=== PATIENT | female | born 1990 | race Caucasian/White ===

== ENCOUNTER 2018-12-21 02:33 | Outpatient (CLI) ==
[2018-12-21 03:07] VITALS: BP 123/72; PULSE 88; RESP 16; TEMP 98.4
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
== END 2018-12-21 03:27 | disposition home or self-care (01) ==
LOC: FBPOP 02:33
PROVIDERS: ATTEND Obstetrics & Gynecology
DX: O26.93 Pregnancy related conditions, unspecified, third trimester (principal); Z3A.30 30 weeks gestation of pregnancy
CPT/HCPCS: 59025; 99213

== ENCOUNTER 2019-02-08 09:30 | Outpatient (CLI) | payer OTHER ==
[2019-02-08 10:40] VITALS: BP 122/72; PULSE 105; RESP 14; TEMP 98.1
--- NOTE | 2019-02-08 10:56 | P.MSEPDOC ---
Presenting Problems - Arrival Data Date of Arrival on Unit: 02/08/19 Time of Arrival on Unit: 09:30 Mode of Transport: Ambulatory Vital Signs - Temperature Temperature: 98.1 F - Pulse Right Brachial Pulse Rate: 105 Pulse Assessment Method: Automatic Cuff - Respirations Respiratory Rate: 14 Oxygen Delivery Method: Room Air - Blood Pressure Right Arm Blood Pressure: 122/72 Blood Pressure Mean: 88 Blood Pressure Source: Automatic Cuff Medical Screen Scoring (Post) - Cervical Exam Dilation: 0 cm = 0 Membranes: Intact - Uterine Contractions Frequency: N/A Duration: N/A Intensity: N/A - Maternal Vital Signs Maternal Temperature: N/A Maternal Blood Pressure: N/A Signs of Preeclampsia: N/A Maternal Respirations: N/A - Pain Assessment Pain Scale Used: Numeric (1 - 10) Pain Intensity: 6 Pain Description: Dull Pain Frequency: Occasional Pain Duration: 1 Pain Duration Units: Days Pain Behavior: None Exhibited Pain Aggravating Factors: Coughing - Maternal Trauma Maternal Trauma: N/A - Assessment - Baby A Heart Rate: 145 Heart Rate - NICHD Category: Category I (Normal) = 0 NST: Reactive Position: N/A Station: +1 to = 1 - Total Score Total Score - Baby A: 1 Total Score - Baby B: 0 Total Score - Baby C: 0 - Post Treatment Level of Risk Post Treatment Level of Risk - Baby A: Low (0-5) Post Treatment Level of Risk - Baby B: Low (0-5) Post Treatment Level of Risk - Baby C: Low (0-5) Physician Notification (Post) - Physician Notified Physician Notified Date: 02/08/19 Physician Notified Time: 10:02 Physician/Practitioner Notified:: mame Spoke With: mame New Order Received: Yes - Notification Comment Comment: reported pt visit with c/o coughing, congestion and fever, vomiting 2 days ago, reported reactive nst, rare contractions, temp 98.1, tylenol use/ dr will call in [facility] for pt. pt may be discharged. Disposition - Disposition OB Disposition: Discharge to home Discharge Date: 02/08/19 Discharge Time: 10:10 I agree with the RN Medical Screening Exam: Yes Risk & Benefit of care provided described in d/c instruction: Yes Diagnosis: ACUTE UPPER RESPIRATORY INFECTION, UNSPECIFIED
== END 2019-02-08 10:17 | disposition home or self-care (01) ==
LOC: FBPOP 09:30
PROVIDERS: ATTEND Obstetrics & Gynecology
DX: O99.519 Diseases of the respiratory system complicating pregnancy, unspecified trimester (principal); J06.9 Acute upper respiratory infection, unspecified; Z3A.00 Weeks of gestation of pregnancy not specified
CPT/HCPCS: 59025; G0463; 99213

== ENCOUNTER 2019-02-23 15:36 | Emergency (ER) | payer OTHER ==
[2019-02-23 15:41] VITALS: BP 142/87; PULSE 110; RESP 20; TEMP 98.1
--- NOTE | 2019-02-23 15:53 | ED ---
ENT HPI - General Chief complaint: ENT Stated complaint: Ear Pain Time Seen by Provider: 02/23/19 15:42 Source: patient, RN notes reviewed Mode of arrival: ambulatory Limitations: no limitations - History of Present Illness Initial comments: 28-year-old female presented emergency apartment for ear pain, sinus congestion. Patient states she's been sick over the last few weeks. Patient was treated for sinusitis with a Z-Eris patient states that did not help. She states it has worsened now she has uncontrolled ear pain. She has a cough is nonproductive. Patient reports fevers and chills. Patient states that she is 39 weeks scheduled for induction and 6 days. Patient has appointment to chest pain or shortness of breath - Related Data Home Medications Medication Instructions Recorded Confirmed Pnv,Calcium 72/Iron/Folic Acid 1 tab PO DAILY 12/21/18 12/21/18 [ Plus Tablet] Previous Rx's Medication Instructions Recorded Amoxicillin/Potassium Clav 1 tab PO Q12HR #20 tab 02/23/19 [Augmentin 875-125 Tablet] Allergies Allergy/AdvReac Type Severity Reaction Status Date / Time No Known Allergies Allergy Verified 02/23/19 15:41 Review of Systems ROS Statement: Those systems with pertinent positive or pertinent negative responses have been documented in the HPI. ROS Other: All systems not noted in ROS Statement are negative. Past Medical History Past Medical History: No Reported History History of Any Multi-Drug Resistant Organisms: None Reported Past Surgical History: Appendectomy Past Psychological History: No Psychological Hx Reported Smoking Status: Never smoker Past Alcohol Use History: None Reported Past Drug Use History: None Reported General Exam Limitations: no limitations General appearance: alert, in no apparent distress Head exam: Present: atraumatic, normocephalic, normal inspection Eye exam: Present: normal appearance, PERRL, EOMI. Absent: scleral icterus, conjunctival injection, periorbital swelling ENT exam: Present: mucous membranes moist, normal external ear exam. Absent: normal oropharynx (Post nasal drainage), TM's normal bilaterally (Minimal erythema though most of the right TM is occluded by cerumen) Neck exam: Present: normal inspection, full ROM. Absent: tenderness, meningismus, lymphadenopathy Respiratory exam: Present: normal lung sounds bilaterally. Absent: respiratory distress, wheezes, rales, rhonchi, stridor Cardiovascular Exam: Present: regular rate, normal rhythm, normal heart sounds. Absent: systolic murmur, diastolic murmur, rubs, gallop, clicks Course Vital Signs 02/23/19 15:37 Temperature 98.1 F Pulse Rate 110 H Respiratory 20 Rate Blood Pressure 142/87 O2 Sat by Pulse 99 Oximetry Medical Decision Making - Medical Decision Making Patient we treated for acute sinusitis, right otitis media patient was placed on Augmentin. Patient will follow-up were PCP and Monday return for any worsening symptoms. Disposition Clinical Impression: Acute sinusitis, Otalgia Disposition: HOME SELF-CARE Condition: Stable Instructions (If sedation given, give patient instructions): Earache (ED) Additional Instructions: Please return to the Emergency Department if symptoms worsen or any other concerns. Prescriptions: Amoxicillin/Potassium Clav [Augmentin 875-125 Tablet] 1 tab PO Q12HR #20 tab Is patient prescribed a controlled substance at d/c from ED?: No Referrals: None,Stated [Primary Care Provider] - 1-2 days Time of Disposition: 15:53
== END 2019-02-23 16:01 | disposition home or self-care (01) ==
LOC: EC 15:36
DX: O99.513 Diseases of the respiratory system complicating pregnancy, third trimester (principal); J01.90 Acute sinusitis, unspecified; O99.89 Other specified diseases and conditions complicating pregnancy, childbirth and the puerperium; H66.91 Otitis media, unspecified, right ear; H61.21 Impacted cerumen, right ear; Z3A.39 39 weeks gestation of pregnancy
CPT/HCPCS: 99282

== ENCOUNTER 2019-02-23 20:11 | Emergency (ER) | payer OTHER ==
[2019-02-23] MEDS ORDERED: SODIUM CHLORIDE 0.9% 1,000 ML IV STA ×2 (20:34)
[2019-02-23] MEDS ORDERED: SODIUM CHLORIDE 0.9% 500 ML 500 ML IV STA (20:34)
[2019-02-23] MEDS ORDERED: diphenhydrAMINE 50 MG/ML 1 ML VIAL IVP STA (20:35)
--- NOTE | 2019-02-23 21:10 | ED ---
Fever HPI - General Chief Complaint: Fever Stated Complaint: Fever Time Seen by Provider: 02/23/19 20:21 Source: patient, RN notes reviewed, old records reviewed Limitations: no limitations - History of Present Illness Initial Comments: This is a 28-year-old female the ER presents today for evaluation regards to fever. Patient's had persistent fever for a few days now this is her third fever and last month. Patient is 39 weeks scheduled for induction 6 days. This is her fifth for as well as gone to term. Patient has multiple concerns now including concern for child. Also having significant right ear pain significant left her. Sinus tenderness and pain and a sore throat. Patient has bilateral lymphadenopathy. Patient has no chest pain no abdominal pain no dysuria no nausea vomiting or diarrhea. Eating appropriately. She does admit to some cough she's had a cough persistent for about the past month a Z-Eris recently for upper respiratory infection MD Complaint: fever, other (Cough and ear pain bilaterally) -: week(s) Temperature Source: subjective, oral Context: sick contacts Associated Symptoms: chills, cough, shortness of breath, night sweats Treatments Prior to Arrival: none - Related Data Home Medications Medication Instructions Recorded Confirmed Pnv,Calcium 72/Iron/Folic Acid 1 tab PO HS 12/21/18 02/23/19 [ Plus Tablet] Acetaminophen Tab [Tylenol Tab] 500 mg PO Q4H PRN 02/23/19 02/23/19 Ferrous Sulfate [Slow Release Iron] 140 mg PO HS 02/23/19 02/23/19 Previous Rx's Medication Instructions Recorded Amoxicillin/Potassium Clav 1 tab PO Q12HR #20 tab 02/23/19 [Augmentin 875-125 Tablet] Allergies Allergy/AdvReac Type Severity Reaction Status Date / Time No Known Allergies Allergy Verified 02/23/19 20:38 Review of Systems ROS Statement: Those systems with pertinent positive or pertinent negative responses have been documented in the HPI. ROS Other: All systems not noted in ROS Statement are negative. Past Medical History Past Medical History: No Reported History History of Any Multi-Drug Resistant Organisms: None Reported Past Surgical History: Appendectomy Past Psychological History: No Psychological Hx Reported Smoking Status: Never smoker Past Alcohol Use History: None Reported Past Drug Use History: None Reported General Exam Limitations: no limitations General appearance: alert, in no apparent distress Head exam: Present: atraumatic, normocephalic, normal inspection Eye exam: Present: normal appearance, PERRL, EOMI. Absent: scleral icterus, conjunctival injection, periorbital swelling ENT exam: Present: normal exam, mucous membranes moist Neck exam: Present: normal inspection. Absent: tenderness, meningismus, lymphadenopathy Respiratory exam: Present: normal lung sounds bilaterally. Absent: respiratory distress, wheezes, rales, rhonchi, stridor Cardiovascular Exam: Present: normal rhythm, tachycardia, normal heart sounds. Absent: systolic murmur, diastolic murmur, rubs, gallop, clicks GI/Abdominal exam: Present: soft, normal bowel sounds. Absent: distended, tenderness, guarding, rebound, rigid Extremities exam: Present: normal inspection, full ROM, normal capillary refill. Absent: tenderness, pedal edema, joint swelling, calf tenderness Back exam: Present: normal inspection Neurological exam: Present: alert, oriented X3, CN II-XII intact Psychiatric exam: Present: normal affect, normal mood Skin exam: Present: warm, dry, intact, normal color. Absent: rash Course Vital Signs 02/23/19 20:12 Temperature 100.7 F H Pulse Rate 117 H Respiratory 20 Rate Blood Pressure 149/92 O2 Sat by Pulse 97 Oximetry - Reevaluation(s) Reevaluation #1: 02/23/19 21:09 Medical record is reviewed 02/23/19 21:10 ER visit from earlier today has been looked at Reevaluation #2: 02/23/19 22:57 had heart tones done here in the ER 1 4150 Reevaluation #3: 02/23/19 22:57 Significantly improved with hydration will continue take Tylenol for fever Medical Decision Making - Medical Decision Making This is a female the ER for evaluation of fever febrile illness for upper respir atory for infection. At this point patient can be discharged home - Lab Data Result diagrams: 02/23/19 20:50 02/23/19 20:50 Lab Results 02/23/19 02/23/19 02/23/19 Range/Units 20:50 20:50 20:50 WBC 10.7 H (3.8-10.6) k/uL RBC 3.62 L (3.80-5.40) m/uL Hgb 10.2 L (11.4-16.0) gm/dL Hct 30.6 L (34.0-46.0) % MCV 84.7 (80.0-100.0) fL MCH 28.2 (25.0-35.0) pg MCHC 33.3 (31.0-37.0) g/dL RDW 14.2 (11.5-15.5) % Plt Count 224 (150-450) k/uL Neutrophils % 80 % Lymphocytes % 10 % Monocytes % 7 % Eosinophils % 0 % Basophils % 1 % Neutrophils # 8.6 H (1.3-7.7) k/uL Lymphocytes # 1.0 (1.0-4.8) k/uL Monocytes # 0.7 (0-1.0) k/uL Eosinophils # 0.0 (0-0.7) k/uL Basophils # 0.1 (0-0.2) k/uL Sodium 134 L (137-145) mmol/L Potassium 3.7 (3.5-5.1) mmol/L Chloride 106 (98-107) mmol/L Carbon Dioxide 19 L (22-30) mmol/L Anion Gap 9 mmol/L BUN 6 L (7-17) mg/dL Creatinine 0.53 (0.52-1.04) mg/dL Est GFR (CKD-EPI)AfAm >90 (>60 ml/min/1.73 sqM) Est GFR (CKD-EPI)NonAf >90 (>60 ml/min/1.73 sqM) Glucose 73 L (74-99) mg/dL Plasma Lactic Acid Lopez 0.9 (0.7-2.0) mmol/L Calcium 9.0 (8.4-10.2) mg/dL Phosphorus 3.2 (2.5-4.5) mg/dL Magnesium 1.6 (1.6-2.3) mg/dL Total Bilirubin 0.3 (0.2-1.3) mg/dL AST 20 (14-36) U/L ALT 18 (9-52) U/L Alkaline Phosphatase 187 H (38-126) U/L Total Protein 6.4 (6.3-8.2) g/dL Albumin 3.4 L (3.5-5.0) g/dL Urine Color Urine Appearance (Clear) Urine pH (5.0-8.0) Ur Specific Ovid (1.001-1.035) Urine Protein (Negative) Urine Glucose (UA) (Negative) Urine Ketones (Negative) Urine Blood (Negative) Urine Nitrite (Negative) Urine Bilirubin (Negative) Urine Urobilinogen (<2.0) mg/dL Ur Leukocyte Esterase (Negative) Urine RBC (0-5) /hpf Urine WBC (0-5) /hpf Ur Squamous Epith Cells (0-4) /hpf Urine Bacteria (None) /hpf Urine Mucus (None) /hpf Influenza Type A RNA (Not Detectd) Influenza Type B (PCR) (Not Detectd) Group A Strep Rapid (Negative) 02/23/19 02/23/19 02/23/19 Range/Units 20:50 20:50 21:31 WBC (3.8-10.6) k/uL RBC (3.80-5.40) m/uL Hgb (11.4-16.0) gm/dL Hct (34.0-46.0) % MCV (80.0-100.0) fL MCH (25.0-35.0) pg MCHC (31.0-37.0) g/dL RDW (11.5-15.5) % Plt Count (150-450) k/uL Neutrophils % % Lymphocytes % % Monocytes % % Eosinophils % % Basophils % % Neutrophils # (1.3-7.7) k/uL Lymphocytes # (1.0-4.8) k/uL Monocytes # (0-1.0) k/uL Eosinophils # (0-0.7) k/uL Basophils # (0-0.2) k/uL Sodium (137-145) mmol/L Potassium (3.5-5.1) mmol/L Chloride (98-107) mmol/L Carbon Dioxide (22-30) mmol/L Anion Gap mmol/L BUN (7-17) mg/dL Creatinine (0.52-1.04) mg/dL Est GFR (CKD-EPI)AfAm (>60 ml/min/1.73 sqM) Est GFR (CKD-EPI)NonAf (>60 ml/min/1.73 sqM) Glucose (74-99) mg/dL Plasma Lactic Acid Lopez (0.7-2.0) mmol/L Calcium (8.4-10.2) mg/dL Phosphorus (2.5-4.5) mg/dL Magnesium (1.6-2.3) mg/dL Total Bilirubin (0.2-1.3) mg/dL AST (14-36) U/L ALT (9-52) U/L Alkaline Phosphatase (38-126) U/L Total Protein (6.3-8.2) g/dL Albumin (3.5-5.0) g/dL Urine Color Yellow Urine Appearance Clear (Clear) Urine pH 7.5 (5.0-8.0) Ur Specific Ovid 1.012 (1.001-1.035) Urine Protein Trace H (Negative) Urine Glucose (UA) Negative (Negative) Urine Ketones 1+ H (Negative) Urine Blood Negative (Negative) Urine Nitrite Negative (Negative) Urine Bilirubin Negative (Negative) Urine Urobilinogen <2.0 (<2.0) mg/dL Ur Leukocyte Esterase Trace H (Negative) Urine RBC <1 (0-5) /hpf Urine WBC 4 (0-5) /hpf Ur Squamous Epith Cells 3 (0-4) /hpf Urine Bacteria Rare H (None) /hpf Urine Mucus Rare H (None) /hpf Influenza Type A RNA Not Detected (Not Detectd) Influenza Type B (PCR) Not Detected (Not Detectd) Group A Strep Rapid Negative (Negative) Disposition Clinical Impression: Otalgia, Acute sinusitis, Impacted cerumen of right ear Disposition: HOME SELF-CARE Condition: Good Instructions (If sedation given, give patient instructions): Fever in Adults (ED) Is patient prescribed a controlled substance at d/c from ED?: No Referrals: None,Stated [Primary Care Provider] - 1-2 days
[2019-02-23 21:13] LABS: Basophils # (A) 0.1 k/uL (0-0.2); Basophils % (A) 1 %; Eosinophils % (A) 0 %; HCT 30.6 % (34.0-46.0); HGB 10.2 gm/dL (11.4-16.0); Lymphocytes % (A) 10 %; MCH 28.2 pg (25.0-35.0); MCHC 33.3 g/dL (31.0-37.0); MCV 84.7 fL (80.0-100.0); Mean Platelet Volume 6.9; Monocytes # (A) 0.7 k/uL (0-1.0); Monocytes % (A) 7 %; Neutrophils # (A) 8.6 k/uL (1.3-7.7); Neutrophils % (A) 80 %; Platelet Count 224 k/uL (150-450); RBC 3.62 m/uL (3.80-5.40); RDW 14.2 % (11.5-15.5); WBC 10.7 k/uL (3.8-10.6)
[2019-02-23 21:27] LABS: ALT 18 U/L (9-52); AST 20 U/L (14-36); African American GFR (CKD) >90 (>60 ml/min/1.73 sqM); Albumin 3.4 g/dL (3.5-5.0); Alkaline Phosphatase 187 U/L (38-126); Anion Gap 9 mmol/L; Blood Urea Nitrogen 6 mg/dL (7-17); Carbon Dioxide 19 mmol/L (22-30); Chloride 106 mmol/L (98-107); Glucose 73 mg/dL (74-99); Magnesium 1.6 mg/dL (1.6-2.3); Phosphorus 3.2 mg/dL (2.5-4.5); Potassium 3.7 mmol/L (3.5-5.1); Sodium 134 mmol/L (137-145); Total Bilirubin 0.3 mg/dL (0.2-1.3); Total Protein 6.4 g/dL (6.3-8.2)
[2019-02-23] MEDS ORDERED: HYDROGEN PEROXIDE BOTTLE TOPICAL STA (21:41)
[2019-02-23 22:23] LABS: Appearance,Urine Clear (Clear); Bacteria,Urine Rare /hpf; Bilirubin,Urine Negative (Negative); Blood,Urine Negative (Negative); Color,Urine Yellow; Glucose,Urine (UA) Negative (Negative); Ketones,Urine 1+ (Negative); Leukocyte Esterase,Urine Trace (Negative); Mucus,Urine Rare /hpf; Nitrite,Urine Negative (Negative); PH, Urine 7.5 (5.0-8.0); Protein,Urine Trace (Negative); RBC,Urine <1 /hpf (0-5); Specific Gravity,Urine 1.012 (1.001-1.035); Squamous Epithelial Cell,Urine 3 /hpf (0-4); Urobilinogen,Urine <2.0 mg/dL (<2.0)
[2019-02-23 23:06] VITALS: BP 116/60; PULSE 116; RESP 16; TEMP 99.6
== END 2019-02-23 23:26 | disposition home or self-care (01) ==
LOC: EC 20:11
DX: O99.513 Diseases of the respiratory system complicating pregnancy, third trimester (principal); J01.90 Acute sinusitis, unspecified; O99.89 Other specified diseases and conditions complicating pregnancy, childbirth and the puerperium; H61.21 Impacted cerumen, right ear; R00.0 Tachycardia, unspecified; J02.9 Acute pharyngitis, unspecified; Z3A.39 39 weeks gestation of pregnancy; Z53.8 Procedure and treatment not carried out for other reasons
CPT/HCPCS: 99284; 96374; 96361; 36415; 80053; 83605; 83735; 84100; 85025; 81001; 87040; 87081; 87430; 87502; J1200

== ENCOUNTER 2019-03-01 06:00 | Inpatient (IN) | payer OTHER ==
--- NOTE | 2019-02-28 20:30 | P.HPOB ---
History of Present Illness H&P Date: 02/28/19 Chief Complaint: Induction of labor This is a 28-year-old female 5 para 0 with an estimated date of confinement of 03/04/2019, estimated gestational age of 39-4/7 weeks, who presents to labor and delivery for induction of labor. She admits to good movement. She has been feeling frequent contractions and pressure. Her course has been essentially uncomplicated. labs: Blood type O+ Antibody screen-negative Rubella-immune RPR-negative Hepatitis B surface antigen-negative HIV-negative Hemoglobin-12.3 /Chlamydia-negative Chromosome testing-negative Obstetrical ultrasound-normal anatomy One hour Glucola-104 Group B streptococcus-positive Obstetrical history: . History of 4 miscarriages. Gynecologic history: No history of sexual transmitted diseases Social history: She is single. 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 Review of Systems Constitutional: Denies chills, Denies fever Eyes: denies blurred vision, denies pain Ears, nose, mouth and throat: Denies headache, Denies sore throat Cardiovascular: Denies chest pain, Denies shortness of breath Respiratory: Denies cough Gastrointestinal: Reports abdominal pain (Irregular contractions) Genitourinary: Reports pelvic pain, Reports Musculoskeletal: Reports low back pain Integumentary: Denies pruritus, Denies rash Neurological: Denies numbness, Denies weakness Past Medical History Past Medical History: No Reported History History of Any Multi-Drug Resistant Organisms: None Reported Past Surgical History: Appendectomy Additional Past Surgical History / Comment(s): Dilation and curettage; wisdom teeth Past Psychological History: No Psychological Hx Reported Smoking Status: Never smoker Past Alcohol Use History: None Reported Past Drug Use History: None Reported Medications and Allergies Home Medications Medication Instructions Recorded Confirmed Type Pnv,Calcium 72/Iron/Folic Acid 1 tab PO HS 12/21/18 02/23/19 History [ Plus Tablet] Acetaminophen Tab [Tylenol Tab] 500 mg PO Q4H PRN 02/23/19 02/23/19 History Amoxicillin/Potassium Clav 1 tab PO Q12HR #20 tab 02/23/19 02/23/19 Rx [Augmentin 875-125 Tablet] Ferrous Sulfate [Slow Release Iron] 140 mg PO HS 02/23/19 02/23/19 History Allergies Allergy/AdvReac Type Severity Reaction Status Date / Time No Known Allergies Allergy Verified 02/23/19 20:38 Exam Osteopathic Statement: *. No significant issues noted on an osteopathic structural exam other than those noted in the History and Physical/Consult. HEENT: Within normal limits Heart: Regular rate and rhythm Lungs: Clear to auscultation bilaterally Abdomen: Cervix: 2 cm/70%/+1 station heart tones: 140s by Doppler Extremities: Negative Homans Assessment and Plan (1) 39 weeks gestation of Status: Acute Code(s): Z3A.39 - 39 WEEKS GESTATION OF SNOMED Code(s): 23589138 (2) Group B Streptococcus carrier, +RV culture, currently Status: Acute Code(s): O99.820 - STREPTOCOCCUS B CARRIER STATE COMPLICATING SNOMED Code(s): 6324207199730 Plan: Admission for oxytocin induction of labor. Antibiotic prophylaxis for group B streptococcus. Expectant management. Epidural anesthesia if desired.
[2019-03-01] MEDS ORDERED: METHYLERGONOVINE 0.2 MG/ML 1 ML AMP IM PRN (06:22)
[2019-03-01] MEDS ORDERED: OXYTOCIN 10 UNIT/ML 1 ML VIAL IM PRN (06:22)
[2019-03-01] MEDS ORDERED: LIDOCAINE 0.5% (PF) 5 MG/ML (50 ML SDV) SQ PRN (06:22)
[2019-03-01] MEDS ORDERED: TERBUTALINE 1 MG/ML VIAL SQ PRN (06:22)
[2019-03-01] MEDS ORDERED: CARBOPROST TROMETHAMINE 250 MCG/ML 1 ML AMP IM PRN (06:22)
[2019-03-01] MEDS ORDERED: OXYTOCIN 30 UNITS/500 ML NS 30 UNIT in SALINE 1 500ML.BAG IV SCH (06:22)
[2019-03-01] MEDS ORDERED: AMPICILLIN 2,000 MG in SODIUM CHLORIDE 0.9% 100 ML IVPB STA (06:22)
[2019-03-01] MEDS ORDERED: LIDOCAINE 1% 20 ML VIAL (10MG/ML) FOR IV START INTRADERMA PRN (06:22)
[2019-03-01 06:32] VITALS: BMI 24.9
[2019-03-01] MEDS: LACTATED RINGERS 1,000 ML IV SCH ×3 (06:32→14:28)
[2019-03-01 06:38] LABS: Basophils # (A) 0.2 k/uL (0-0.2); Basophils % (A) 2 %; Eosinophils # (A) 0.1 k/uL (0-0.7); Eosinophils % (A) 1 %; HCT 33.3 % (34.0-46.0); HGB 10.7 gm/dL (11.4-16.0); Lymphocytes # (A) 2.1 k/uL (1.0-4.8); Lymphocytes % (A) 21 %; MCH 27.5 pg (25.0-35.0); MCHC 32.1 g/dL (31.0-37.0); MCV 85.8 fL (80.0-100.0); Mean Platelet Volume 6.6; Monocytes # (A) 0.6 k/uL (0-1.0); Monocytes % (A) 6 %; Neutrophils # (A) 6.6 k/uL (1.3-7.7); Neutrophils % (A) 68 %; Platelet Count 258 k/uL (150-450); RBC 3.88 m/uL (3.80-5.40); RDW 14.1 % (11.5-15.5); WBC 9.8 k/uL (3.8-10.6)
[2019-03-01] MEDS ORDERED: BUTORPHANOL 1 MG/ML 1 ML VIAL IV PRN (09:41)
[2019-03-01] MEDS: AMPICILLIN 1,000 MG in SODIUM CHLORIDE 0.9% 50 ML IVPB SCH ×2 (11:05→14:43)
[2019-03-01] MEDS ORDERED: ROPIVACAINE 100 MG, fentaNYL (PF) 200 MCG in SODIUM CHLORIDE 0.9% 76 ML EPIDURAL ONE (11:54)
--- NOTE | 2019-03-01 17:40 | P.PROBDLV ---
Vaginal Delivery Note - . Vaginal Delivery Note: The patient progressed to complete dilation after oxytocin induction of labor and artificial rupture membranes with thin meconium noted. She did receive epidural anesthesia. She also received antibiotic prophylaxis for group B streptococcus. Once reaching complete dilation she began pushing. 's a came to a crown. With one further push, the 's head delivered across the perineum followed by the anterior shoulder. Nose and mouth were bulb suctioned at the perineum. With one further push, the remainder the infant easily delivered and was placed on mother's abdomen. Brisk cry was noted immediately. Cord was clamped and cut and infant was taken to warmer for evaluation. Cord blood was obtained secondary to O+ blood type. Next the placenta delivered shortly thereafter, intact, with a three-vessel cord. Uterus contracted well after oxytocin was given and uterine massage was carried out. Bladder was also drained. Inspection of the perineum revealed bilateral periurethral lacerations. These areas were anesthetized with 1% lidocaine and then sutured with 3-0 and 2-0 Vicryl suture in running locked fashion. Estimated blood loss is approximately 150 mL.
[2019-03-01] MEDS ORDERED: LANOLIN CREAM 5 GM TUBE TOPICAL PRN (18:41)
[2019-03-01] MEDS ORDERED: HYDROCORTISONE 2.5% RECTAL CREAM 30 GM TUBE RECTAL PRN (18:41)
[2019-03-01] MEDS ORDERED: SIMETHICONE 80 MG CHEWABLE PO PRN (18:41)
[2019-03-01] MEDS ORDERED: diphenhydrAMINE 25 MG CAP PO PRN (18:41)
[2019-03-01] MEDS ORDERED: diphenhydrAMINE 50 MG CAP PO PRN (18:41)
[2019-03-01] MEDS ORDERED: BENZOCAINE/MENTHOL SPRAY 1 GM/SPRAY AEROSOL TOPICAL PRN (18:41)
[2019-03-01] MEDS ORDERED: diphenhydrAMINE 50 MG/ML 1 ML VIAL IVP PRN ×2 (18:41)
[2019-03-01] MEDS ORDERED: ZOLPIDEM 5 MG TAB PO PRN (18:41)
[2019-03-01] MEDS ORDERED: WITCH HAZEL 1 EACH MED..PAD TOPICAL PRN (18:41)
[2019-03-01] MEDS ORDERED: OXYTOCIN 20 UNITS/1000 ML NS 1,000 ML IV SCH (18:41)
[2019-03-01] MEDS: SENNOSIDES-DOCUSATE SODIUM 1 EACH TAB PO SCH (20:12)
[2019-03-01] MEDS: IBUPROFEN 600 MG TAB PO PRN (20:12)
[2019-03-02] MEDS: IBUPROFEN 600 MG TAB PO PRN ×2 (04:15→13:51)
--- NOTE | 2019-03-02 06:39 | P.DS ---
Providers Date of admission: 03/01/19 06:03 Expected date of discharge: 03/02/19 Attending physician: Dianelys Guo Primary care physician: Stated None - Discharge Diagnosis(es) (1) 39 weeks gestation of Current Visit: No Status: Acute (2) Group B Streptococcus carrier, +RV culture, currently Current Visit: No Status: Acute Hospital Course: This is a 28-year-old female 5 para 0 at 39-4/7 weeks who presents for induction of labor. She underwent oxytocin induction of labor and delivered vaginally a viable male infant with scores of 8 at 1 minute and 9 at 5 minutes and weight of 8 lbs. 10 oz. Her course has been essentially uncomplicated. She is working on feeding. Lochia is decreasing. Pain is fairly well controlled with ibuprofen. Vital signs are stable. Abdomen soft with fundus firm and nontender. Extremities show negative Homans. Impression is status post vaginal delivery day #1. Plan is to discharge home today. Routine instructions are given. She will be given a prescription for ibuprofen and a breast pump. She is advised to call the office if she has any further questions or concerns prior to her appointment time. Procedures: Oxytocin induction of labor Spontaneous vaginal delivery of a viable male infant on 03/01/2019 Patient Condition at Discharge: Stable Plan - Discharge Summary New Discharge Prescriptions: New Ibuprofen [Motrin] 600 mg PO Q6HR PRN #60 tab PRN Reason: Mild Pain Or Fever >= 100.5 Continue Pnv,Calcium 72/Iron/Folic Acid [ Plus Tablet] 1 tab PO HS No Action Amoxicillin/Potassium Clav [Augmentin 875-125 Tablet] 1 tab PO Q12HR #20 tab Ferrous Sulfate [Slow Release Iron] 140 mg PO HS Discharge Medication List Pnv,Calcium 72/Iron/Folic Acid [ Plus Tablet] 1 tab PO HS 12/21/18 [History] Amoxicillin/Potassium Clav [Augmentin 875-125 Tablet] 1 tab PO Q12HR #20 tab 02/23/19 [Rx] Ferrous Sulfate [Slow Release Iron] 140 mg PO HS 02/23/19 [History] Ibuprofen [Motrin] 600 mg PO Q6HR PRN #60 tab 03/02/19 [Rx] Follow up Appointment(s)/Referral(s): Dianelys Guo DO [Doctor of Osteopathic Medicine] - 6 Weeks Activity/Diet/Wound Care/Special Instructions: Instructions 1. Do not begin any exercise program for 3 weeks. 2. Do not resume sexual relations for 3 weeks or longer if uncomfortable. 3. You may take tub baths or showers at any time. 4. You may use tampons if desired after 3 weeks. 5. Keep the area of episiotomy (stitches) clean and dry. 6. If you are not nursing, wear a good fitting, supportive bra during the day and limit fluid intake for at least 1 week to prevent breast engorgement. 7. Call the office, [phone], within the next week to make appointment for your 6 week checkup if it has not already been made. 8. Report any of the following occurrences to the doctor promptly: a. Heavy, excessive bleeding b. Chills, fever c. Burning or frequency of urination d. Pain or redness and breasts if nursing e. Increasing pain or swelling in episiotomy (stitches). In addition to the above instructions, the following additional should be followed: 1. No heavy lifting or straining (exercising) until after 6 week checkup. 2. Keep abdominal incision clean and dry: You may wear a dressing if more comfortable. 3. Make office appointment for 10 days after going home or as instructed by her doctor. Discharge Disposition: HOME SELF-CARE
[2019-03-02 08:00] LABS: Basophils % (A) 0 %; Eosinophils # (A) 0.1 k/uL (0-0.7); Eosinophils % (A) 0 %; HCT 25.9 % (34.0-46.0); Lymphocytes % (A) 15 %; MCH 28.9 pg (25.0-35.0); MCHC 33.7 g/dL (31.0-37.0); MCV 85.6 fL (80.0-100.0); Mean Platelet Volume 6.9; Monocytes # (A) 0.6 k/uL (0-1.0); Monocytes % (A) 5 %; Neutrophils # (A) 10.3 k/uL (1.3-7.7); Neutrophils % (A) 78 %; Platelet Count 210 k/uL (150-450); RBC 3.03 m/uL (3.80-5.40); RDW 13.8 % (11.5-15.5); WBC 13.3 k/uL (3.8-10.6)
[2019-03-02 08:02] LABS: HGB 8.7 gm/dL (11.4-16.0)
[2019-03-02] MEDS: ACETAMINOPHEN TAB 325 MG TAB PO PRN ×2 (08:37→15:17)
[2019-03-02] MEDS: SENNOSIDES-DOCUSATE SODIUM 1 EACH TAB PO SCH (08:38)
[2019-03-03] MEDS: SENNOSIDES-DOCUSATE SODIUM 1 EACH TAB PO SCH ×3 (00:56→22:34)
[2019-03-03] MEDS: IBUPROFEN 600 MG TAB PO PRN ×4 (02:59→22:17)
[2019-03-03 12:28] VITALS: RESP 18
[2019-03-03] MEDS: ACETAMINOPHEN TAB 325 MG TAB PO PRN (15:23)
[2019-03-03 16:34] VITALS: BP 134/87; PULSE 84; TEMP 97.8
[2019-03-03] MEDS ORDERED: INFLUENZA VACCINE (6 MOS+) 60 MCG/0.5 ML SYRINGE IM ONE (16:56)
[2019-03-03] MEDS ORDERED: DIPH,PERTUS(ACELL)TETVAC-LF 0.5 ML VIAL IM ONE (16:56)
== END 2019-03-03 22:30 | disposition home or self-care (01) | DRG 807 ==
LOC: 4FBP 06:03
PROVIDERS: ADMIT Obstetrics & Gynecology; ATTEND Obstetrics & Gynecology
PROC: 10E0XZZ Delivery of Products of Conception, External Approach (ICD-10-PCS; principal; 2019-03-01)
PROC: 0UQMXZZ Repair Vulva, External Approach (ICD-10-PCS; 2019-03-01)
PROC: 00HU33Z Insertion of Infusion Device into Spinal Canal, Percutaneous Approach (ICD-10-PCS; 2019-03-01)
PROC: 3E0R3BZ Introduction of Anesthetic Agent into Spinal Canal, Percutaneous Approach (ICD-10-PCS; 2019-03-01)
PROC: 3E033VJ Introduction of Other Hormone into Peripheral Vein, Percutaneous Approach (ICD-10-PCS; 2019-03-01)
PROC: 10907ZC Drainage of Amniotic Fluid, Therapeutic from Products of Conception, Via Natural or Artificial Opening (ICD-10-PCS; 2019-03-01)
PROC: 3E0234Z Introduction of Serum, Toxoid and Vaccine into Muscle, Percutaneous Approach (ICD-10-PCS; 2019-03-03)
PROC: 3E02340 Introduction of Influenza Vaccine into Muscle, Percutaneous Approach (ICD-10-PCS; 2019-03-03)
DX: O99.824 Streptococcus B carrier state complicating childbirth (principal); Z37.0 Single live birth; B95.1 Streptococcus, group B, as the cause of diseases classified elsewhere; O71.82 Other specified trauma to perineum and vulva; O77.0 Labor and delivery complicated by meconium in amniotic fluid; O99.62 Diseases of the digestive system complicating childbirth; K21.9 Gastro-esophageal reflux disease without esophagitis; Z3A.39 39 weeks gestation of pregnancy; Z23 Encounter for immunization; Z98.890 Other specified postprocedural states; Z79.899 Other long term (current) drug therapy
CPT/HCPCS: 85025; 86850; 86900; 86901; 88307; 90471; 90472; 90686; 90715

== ENCOUNTER 2020-11-24 08:47 | Emergency (ER) | payer OTHER ==
[2020-11-24 09:01] VITALS: TEMP 97.8
[2020-11-24] MEDS ORDERED: SODIUM CHLORIDE 0.9% 1,000 ML IV STA (09:13)
[2020-11-24] MEDS ORDERED: KETOROLAC 15 MG/ML 1 ML VIAL IVP STA (09:13)
[2020-11-24] MEDS ORDERED: ONDANSETRON 4 MG/2 ML VIAL IVP STA (09:13)
--- NOTE | 2020-11-24 09:42 | ED ---
Abdominal Pain HPI - General Chief Complaint: Abdominal Pain Stated Complaint: Abd Pain Time Seen by Provider: 11/24/20 09:03 Source: patient Mode of arrival: ambulatory Limitations: no limitations - History of Present Illness Initial Comments: Patient is a 29-year-old female presenting to the emergency Department with complaints of upper abdominal pain that woke her up from sleep at about 4 AM. About 2 days ago patient thought that she might have food poisoning as she had an abrupt onset of nausea, vomiting and diarrhea. She states that continued for a little bit yesterday and then was feeling some improvement until early this morning when her pain started. She states she has had some mild nausea but no more vomiting, no diarrhea. She didn't have a bowel movement yesterday. She admits to history of appendectomy, hernia repair, no other abdominal surgeries. She states she does not believe she is as she is on control. She denies any fevers or chills, no chest pain or shortness of breath. She describes the pain is all epigastric, right upper quadrant with some radiation around the sides towards the back. She currently describes as 9/10. She denies any dysuria. She has no further complaints. Her vitals are stable upon arrival. - Related Data Home Medications Medication Instructions Recorded Confirmed Medroxyprogesterone Acetate 150 mg IM Q84D 11/24/20 11/24/20 [Depo-Provera] Allergies Allergy/AdvReac Type Severity Reaction Status Date / Time No Known Allergies Allergy Verified 11/24/20 10:23 Review of Systems ROS Statement: Those systems with pertinent positive or pertinent negative responses have been documented in the HPI. ROS Other: All systems not noted in ROS Statement are negative. Past Medical History Past Medical History: No Reported History History of Any Multi-Drug Resistant Organisms: None Reported Past Surgical History: Appendectomy, Hernia Repair Additional Past Surgical History / Comment(s): Dilation and curettage; wisdom teeth, lasik Past Anesthesia/Blood Transfusion Reactions: No Reported Reaction Past Psychological History: No Psychological Hx Reported Smoking Status: Never smoker Past Alcohol Use History: None Reported Past Drug Use History: None Reported - Past Family History Father Family Medical History: No Reported History Mother Additional Family Medical History / Comment(s): OSTEOPOROSIS General Exam - General Exam Comments Initial Comments: GENERAL: Patient is well-developed and well-nourished. Patient is nontoxic and in mild distress. HEAD: Atraumatic, normocephalic. EYES: Pupils equal round and reactive to light, extraocular movements intact, sclera anicteric, conjunctiva are normal. Eyelids were unremarkable. ENT: Nares patent, oropharynx clear without exudates. Moist mucous membranes. NECK: Normal range of motion, supple without lymphadenopathy or JVD. LUNGS: Unlabored respirations. Breath sounds clear to auscultation bilaterally and equal. No wheezes rales or rhonchi. HEART: Regular rate and rhythm without murmurs, rubs or gallops. ABDOMEN: Soft, tender to palpation epigastric and right upper quadrant, positive Weiss's sign, positive guarding. normoactive bowel sounds. No masses appreciated. : Deferred MUSCULOSKELETAL: Normal extremities with adequate strength and normal range of motion, no pitting or edema. No clubbing or cyanosis. NEUROLOGICAL: Patient is alert and oriented x 3. SKIN: Warm, Dry, normal turgor, no rashes or lesions noted. Limitations: no limitations Course Vital Signs 11/24/20 08:57 Temperature 97.8 F Pulse Rate 82 Respiratory 18 Rate Blood Pressure 129/83 O2 Sat by Pulse 100 Oximetry Medical Decision Making - Medical Decision Making Patient is a 29-year-old female presenting with epigastric, right upper quadrant pain that woke her from sleep at about 4 AM this morning. Mild nausea, no vomiting, no fevers. Her vitals are stable. Appendectomy and hernia repair, no other abdominal surgeries. She denies being . Labs today are all within normal limits including normal white count and lactic acid, liver enzymes are within normal limits. Urine shows no evidence of infection, hCG is not detected. Ultrasound of the gallbladder shows no evidence of gallstones or acute cholecystitis. KUB shows gas but overall nonobstructive gas pattern. Patient was given fluids, Toradol and Zofran and has been resting currently. She states her pain is very minimal at this time and she feels much better. I discussed with patient her pain could be coming from her gallbladder, colic or gas pains. I recommended falling up with her PCP. She is agreeable as planned care and is stable for discharge. Return parameters were discussed with her and she verbalized understanding. Case discussed with Dr. Ward. - Lab Data Result diagrams: 11/24/20 09:31 11/24/20 09:31 Lab Results 11/24/20 11/24/20 11/24/20 Range/Units 09:31 09:31 09:31 WBC 7.4 (3.8-10.6) k/uL RBC 4.77 (3.80-5.40) m/uL Hgb 14.8 (11.4-16.0) gm/dL Hct 43.6 (34.0-46.0) % MCV 91.3 (80.0-100.0) fL MCH 31.0 (25.0-35.0) pg MCHC 33.9 (31.0-37.0) g/dL RDW 12.8 (11.5-15.5) % Plt Count 272 (150-450) k/uL MPV 6.9 Neutrophils % 67 % Lymphocytes % 26 % Monocytes % 4 % Eosinophils % 1 % Basophils % 0 % Neutrophils # 4.9 (1.3-7.7) k/uL Lymphocytes # 1.9 (1.0-4.8) k/uL Monocytes # 0.3 (0-1.0) k/uL Eosinophils # 0.1 (0-0.7) k/uL Basophils # 0.0 (0-0.2) k/uL Sodium (137-145) mmol/L Potassium (3.5-5.1) mmol/L Chloride (98-107) mmol/L Carbon Dioxide (22-30) mmol/L Anion Gap mmol/L BUN (7-17) mg/dL Creatinine (0.52-1.04) mg/dL Est GFR (CKD-EPI)AfAm (>60 ml/min/1.73 sqM) Est GFR (CKD-EPI)NonAf (>60 ml/min/1.73 sqM) Glucose (74-99) mg/dL Plasma Lactic Acid Lopez (0.7-2.0) mmol/L Calcium (8.4-10.2) mg/dL Total Bilirubin (0.2-1.3) mg/dL AST (14-36) U/L ALT (4-34) U/L Alkaline Phosphatase (38-126) U/L Total Protein (6.3-8.2) g/dL Albumin (3.5-5.0) g/dL Amylase (30-110) U/L Lipase (23-300) U/L Urine Color Yellow Urine Appearance Clear (Clear) Urine pH 5.5 (5.0-8.0) Ur Specific [place] 1.024 (1.001-1.035) Urine Protein Negative (Negative) Urine Glucose (UA) Negative (Negative) Urine Ketones Negative (Negative) Urine Blood Negative (Negative) Urine Nitrite Negative (Negative) Urine Bilirubin Negative (Negative) Urine Urobilinogen <2.0 (<2.0) mg/dL Ur Leukocyte Esterase Negative (Negative) Urine HCG, Qual Not Detected (Not Detectd) 11/24/20 11/24/20 Range/Units 09:31 09:31 WBC (3.8-10.6) k/uL RBC (3.80-5.40) m/uL Hgb (11.4-16.0) gm/dL Hct (34.0-46.0) % MCV (80.0-100.0) fL MCH (25.0-35.0) pg MCHC (31.0-37.0) g/dL RDW (11.5-15.5) % Plt Count (150-450) k/uL MPV Neutrophils % % Lymphocytes % % Monocytes % % Eosinophils % % Basophils % % Neutrophils # (1.3-7.7) k/uL Lymphocytes # (1.0-4.8) k/uL Monocytes # (0-1.0) k/uL Eosinophils # (0-0.7) k/uL Basophils # (0-0.2) k/uL Sodium 139 (137-145) mmol/L Potassium 4.3 (3.5-5.1) mmol/L Chloride 106 (98-107) mmol/L Carbon Dioxide 20 L (22-30) mmol/L Anion Gap 13 mmol/L BUN 15 (7-17) mg/dL Creatinine 0.68 (0.52-1.04) mg/dL Est GFR (CKD-EPI)AfAm >90 (>60 ml/min/1.73 sqM) Est GFR (CKD-EPI)NonAf >90 (>60 ml/min/1.73 sqM) Glucose 96 (74-99) mg/dL Plasma Lactic Acid Lopez 0.7 (0.7-2.0) mmol/L Calcium 10.0 (8.4-10.2) mg/dL Total Bilirubin 0.5 (0.2-1.3) mg/dL AST 22 (14-36) U/L ALT 14 (4-34) U/L Alkaline Phosphatase 65 (38-126) U/L Total Protein 8.1 (6.3-8.2) g/dL Albumin 5.2 H (3.5-5.0) g/dL Amylase 60 (30-110) U/L Lipase 139 (23-300) U/L Urine Color Urine Appearance (Clear) Urine pH (5.0-8.0) Ur Specific [place] (1.001-1.035) Urine Protein (Negative) Urine Glucose (UA) (Negative) Urine Ketones (Negative) Urine Blood (Negative) Urine Nitrite (Negative) Urine Bilirubin (Negative) Urine Urobilinogen (<2.0) mg/dL Ur Leukocyte Esterase (Negative) Urine HCG, Qual (Not Detectd) Disposition Clinical Impression: Epigastric abdominal pain, RUQ abdominal pain Disposition: HOME SELF-CARE Condition: Stable Instructions (If sedation given, give patient instructions): Abdominal Pain (ED) Additional Instructions: Please return to the Emergency Department if symptoms worsen or any other concerns. Continue to increase your fluid intake. Please follow-up with your PCP. Is patient prescribed a controlled substance at d/c from ED?: No Referrals: Zoran Nails MD [Primary Care Provider] - 1-2 days Time of Disposition: 10:53
[2020-11-24 09:46] LABS: Basophils % (A) 0 %; Eosinophils # (A) 0.1 k/uL (0-0.7); Eosinophils % (A) 1 %; HCT 43.6 % (34.0-46.0); HGB 14.8 gm/dL (11.4-16.0); Lymphocytes # (A) 1.9 k/uL (1.0-4.8); Lymphocytes % (A) 26 %; MCHC 33.9 g/dL (31.0-37.0); MCV 91.3 fL (80.0-100.0); Mean Platelet Volume 6.9; Monocytes # (A) 0.3 k/uL (0-1.0); Monocytes % (A) 4 %; Neutrophils # (A) 4.9 k/uL (1.3-7.7); Neutrophils % (A) 67 %; Platelet Count 272 k/uL (150-450); RBC 4.77 m/uL (3.80-5.40); RDW 12.8 % (11.5-15.5); WBC 7.4 k/uL (3.8-10.6)
[2020-11-24 10:00] LABS: Appearance,Urine Clear (Clear); Bilirubin,Urine Negative (Negative); Blood,Urine Negative (Negative); Color,Urine Yellow; Glucose,Urine (UA) Negative (Negative); Ketones,Urine Negative (Negative); Leukocyte Esterase,Urine Negative (Negative); Nitrite,Urine Negative (Negative); PH, Urine 5.5 (5.0-8.0); Protein,Urine Negative (Negative); Specific Gravity,Urine 1.024 (1.001-1.035); Urobilinogen,Urine <2.0 mg/dL (<2.0)
--- NOTE | 2020-11-24 10:11 | US ---
EXAMINATION TYPE: US gallbladder DATE OF EXAM: 11/24/2020 COMPARISON: NONE CLINICAL HISTORY: epigastric/RUQ pain x 4am. RUQ pain today EXAM MEASUREMENTS: Liver Length: 16.5 cm Gallbladder Wall: 0.2 cm CBD: 0.4 cm Right Kidney: 9.9 x 4.6 x 4.5 cm Pancreas: wnl Liver: wnl Gallbladder: wnl Evidence for sonographic Weiss's sign: no CBD: wnl Right Kidney: Cyst seen = 1.4 x 1.7 x 1.4cm Visualized pancreas is within normal limits. Visualized liver is unremarkable. Gallbladder shows no s hadowing mobile gallstones. Incidental 1.4 cm thin-walled benign cyst in the midpole right kidney. No right-sided hydronephrosis. IMPRESSION: No shadowing mobile gallstones or ultrasound evidence for acute cholecystitis.
[2020-11-24 10:14] LABS: ALT 14 U/L (4-34); AST 22 U/L (14-36); African American GFR (CKD) >90 (>60 ml/min/1.73 sqM); Albumin 5.2 g/dL (3.5-5.0); Alkaline Phosphatase 65 U/L (38-126); Amylase 60 U/L (30-110); Anion Gap 13 mmol/L; Blood Urea Nitrogen 15 mg/dL (7-17); Carbon Dioxide 20 mmol/L (22-30); Chloride 106 mmol/L (98-107); Glucose 96 mg/dL (74-99); Lipase 139 U/L (23-300); Non-African American GFR(CKD) >90 (>60 ml/min/1.73 sqM); Potassium 4.3 mmol/L (3.5-5.1); Sodium 139 mmol/L (137-145); Total Bilirubin 0.5 mg/dL (0.2-1.3); Total Protein 8.1 g/dL (6.3-8.2)
--- NOTE | 2020-11-24 10:47 | XR ---
EXAMINATION TYPE: XR KUB DATE OF EXAM: 11/24/2020 10:25 AM CLINICAL HISTORY: Epigastric pain with nausea and vomiting TECHNIQUE: Single upright KUB image of the abdomen is obtained. COMPARISON: Abdominal x-ray December 16, 2019 FINDINGS: Gas seen in slightly elongated stomach. Scattered gas is seen in non-distended small bowel loops in the lower abdomen and pelvis. Gas and fecal material is seen in non-distended colon. Promine nt right hepatic lobe or hepatomegaly. No suspicious calcification. More prominent dextroconvex scoli osis centered at L3-L4 level. Transitional-type L6 vertebra is sacralized on the left. Lung bases are clear. No free air. IMPRESSION: Overall nonobstructive bowel gas pattern.
[2020-11-24 11:06] VITALS: BP 106/67; PULSE 66; RESP 16
== END 2020-11-24 11:06 | disposition home or self-care (01) ==
LOC: EC 08:47
DX: R10.13 Epigastric pain (principal); R10.11 Right upper quadrant pain; R11.0 Nausea
CPT/HCPCS: 36415; 80053; 82150; 83605; 83690; 85025; 81003; 81025; 74018; 76705; 99284; 96374; 96375; 96361; J2405; J1885

== ENCOUNTER → 2021-02-17 | Outpatient (CLI) | payer OTHER | END | disposition home or self-care (01) | LOC: LABWHC1 09:58 | PROVIDERS: ATTEND Obstetrics & Gynecology | DX: N92.6 Irregular menstruation, unspecified (principal) | CPT/HCPCS: 36415; 84702 ==

== ENCOUNTER 2021-07-14 13:47 | Emergency (ER) | payer OTHER ==
[2021-07-14 13:52] VITALS: BP 163/80; PULSE 98; RESP 16; TEMP 96.5
[2021-07-14] MEDS ORDERED: predniSONE 20 MG TAB PO STA (14:13)
--- NOTE | 2021-07-14 14:27 | ED ---
ENT HPI - General Chief complaint: ENT Stated complaint: Ruptured Right Ear Drum Time Seen by Provider: 07/14/21 13:53 Source: patient, RN notes reviewed Mode of arrival: ambulatory - History of Present Illness Initial comments: This is a 30-year-old female who presents to the emergency Department for right ear pain. States that yesterday her ear was clogged from being on the shower. This morning she went to have a massage, and following the massage she began to develop significant right ear pain. Denies any drainage from the ear or hearing a pop. The massage therapist did not crack her neck. The pain is described as stabbing. States that it is radiating into her jaw and down her neck. She took Ibuprofen with no relief. MD complaint: ear pain (right) Onset/Timin -: days(s) Location: R ear Severity: severe Severity scale (1-10): 8 Quality: stabbing Consistency: constant Improves with: none - Related Data Home Medications Medication Instructions Recorded Confirmed Medroxyprogesterone Acetate 150 mg IM Q84D 11/24/20 11/24/20 [Depo-Provera] Previous Rx's Medication Instructions Recorded Amoxicillin 875 mg PO Q12HR 7 Days #14 tablet 07/14/21 HYDROcodone/APAP 5-325MG [[place] 1 tab PO Q6HR PRN 3 Days #12 tab 07/14/21 5-325] predniSONE [Deltasone] 40 mg PO DAILY #10 tab 07/14/21 Allergies Allergy/AdvReac Type Severity Reaction Status Date / Time No Known Allergies Allergy Verified 07/14/21 14:33 Review of Systems ROS Statement: Those systems with pertinent positive or pertinent negative responses have been documented in the HPI. ROS Other: All systems not noted in ROS Statement are negative. Constitutional: Denies: fever, chills ENT: Reports: ear pain. Denies: throat pain Respiratory: Denies: cough, dyspnea Cardiovascular: Denies: chest pain, palpitations Gastrointestinal: Denies: abdominal pain, nausea, vomiting, diarrhea Genitourinary: Denies: urgency, dysuria Skin: Denies: rash Neurological: Denies: headache Past Medical History Past Medical History: No Reported History History of Any Multi-Drug Resistant Organisms: None Reported Past Surgical History: Appendectomy, Hernia Repair Additional Past Surgical History / Comment(s): Dilation and curettage; wisdom teeth, lasik Past Anesthesia/Blood Transfusion Reactions: No Reported Reaction Past Psychological History: No Psychological Hx Reported Smoking Status: Never smoker Past Alcohol Use History: None Reported Past Drug Use History: None Reported - Past Family History Father Family Medical History: No Reported History Mother Additional Family Medical History / Comment(s): OSTEOPOROSIS General Exam General appearance: alert, in distress Head exam: Present: atraumatic, normocephalic, normal inspection Expanded Ear exam: Present: normal external inspection TM/Canal exam: Erythema: Right TM, Bulging: Right TM Neck exam: Present: normal inspection. Absent: tenderness, meningismus, lymphadenopathy Respiratory exam: Present: normal lung sounds bilaterally. Absent: respiratory distress, wheezes, rales, rhonchi, stridor Cardiovascular Exam: Present: regular rate, normal rhythm, normal heart sounds. Absent: systolic murmur, diastolic murmur, rubs, gallop, clicks Neurological exam: Present: alert, oriented X3, CN II-XII intact Psychiatric exam: Present: normal affect, normal mood Skin exam: Present: warm, dry, intact, normal color. Absent: rash Course Vital Signs 07/14/21 13:49 Temperature 96.5 F L Pulse Rate 98 Respiratory 16 Rate Blood Pressure 163/80 O2 Sat by Pulse 100 Oximetry Medical Decision Making - Medical Decision Making This is a 30-year-old female who presents to the emergency department for right ear pain. Physical exam most consistent with an otitis media. No abnormalities of the ear canal visualized. Dr. Martinez evaluated the patient with me. It is thought that the massage stimulated lymphatic drainage, causing pressure behind the eardrum and subsequently an infection. Patient given 50 mg of prednisone in the emergency department. Patient will be discharged on amoxicillin, [place], and prednisone. Patient is advised to only take [place] at night until she knows how it affects her. Prednisone is to be taken for 5 days, advised this should be taken in the morning, as it can be stimulating. Also instructed her to avoid taking ibuprofen or any other anti-inflammatories with the prednisone. Information for ear nose and throat listed on her discharge paperwork. She is instructed to follow-up with them for further evaluation. Return precautions reviewed in depth, the patient is instructed to return to the emergency department if symptoms worsen, including but not limited to, increased pain, fevers/chills, or drainage from the ear. Patient verbalized understanding. This case was discussed in detail with the attending ED physician. Presentation, findings, and treatment plan discussed in detail as well. Disposition Clinical Impression: Otitis media Disposition: HOME SELF-CARE Instructions (If sedation given, give patient instructions): Ear Infection (ED), Earache (ED) Additional Instructions: Return to the emergency department if your symptoms worsen, you develop fevers/chills, or drainage from the ear. Take the antibiotic as prescribed for its entire duration. Do not take ibuprofen or any other anti-inflammatories with the prednisone. You can take Tylenol with it. Take the [place] only at night until you know how it affects you. Information for the ear nose and throat provider listed on discharge forms. Contact the office and make an appointment within the next few days for further evaluation. Prescriptions: Amoxicillin 875 mg PO Q12HR 7 Days #14 tablet predniSONE [Deltasone] 40 mg PO DAILY #10 tab HYDROcodone/APAP 5-325MG [[place] 5-325] 1 tab PO Q6HR PRN 3 Days #12 tab PRN Reason: Pain Is patient prescribed a controlled substance at d/c from ED?: Yes If prescribed controlled substance>3 days was MAPS reviewed?: Prescribed <3 Days Referrals: Zoran Nails MD [Primary Care Provider] - 1-2 days Asael Robison DO [Doctor of Osteopathic Medicine] - 1-2 days
== END 2021-07-14 15:04 | disposition home or self-care (01) ==
LOC: EC 13:47
DX: H66.91 Otitis media, unspecified, right ear (principal)
CPT/HCPCS: 99282; J7512

== ENCOUNTER 2021-12-09 17:05 | Emergency (ER) | payer OTHER ==
[2021-12-09 17:08] VITALS: RESP 16; TEMP 98
[2021-12-09] MEDS ORDERED: SODIUM CHLORIDE 0.9% 500 ML 500 ML IV STA (17:39)
[2021-12-09] MEDS ORDERED: MECLIZINE 12.5 MG TAB PO STA (17:39)
[2021-12-09] MEDS ORDERED: METOCLOPRAMIDE 5 MG/ML 2 ML VIAL IVP STA (17:40)
--- NOTE | 2021-12-09 17:41 | ED ---
General Adult HPI - General Chief complaint: Dizziness Stated complaint: Vertigo Time Seen by Provider: 12/09/21 17:24 Source: patient, RN notes reviewed Mode of arrival: ambulatory Limitations: no limitations - History of Present Illness Initial comments: Patient is a pleasant 31-year-old female presenting to the emergency department with concerns for vertigo. Onset of symptoms was around 2 and half hours ago. An onset. Patient feels like she is spinning. Symptoms worsen with upright position and head movements. No history of chronic vertigo. Patient does feel nauseated as well. No weakness. No confusion. No visual changes. No speech problems. - Related Data Home Medications Medication Instructions Recorded Confirmed Ascorbic Acid [Vitamin C] 1,000 mg PO DAILY 12/09/21 12/09/21 Ferrous Sulfate [Feosol] 325 mg PO DAILY 12/09/21 12/09/21 Magnesium 250 mg PO DAILY 12/09/21 12/09/21 Zinc 50 mg PO DAILY 12/09/21 12/09/21 norethindrone-e.estradioL-iron 1 tab PO DAILY 12/09/21 12/09/21 [Loestrin Fe 1-20 Tablet] Allergies Allergy/AdvReac Type Severity Reaction Status Date / Time No Known Allergies Allergy Verified 12/09/21 18:14 Review of Systems ROS Statement: Those systems with pertinent positive or pertinent negative responses have been documented in the HPI. ROS Other: All systems not noted in ROS Statement are negative. Constitutional: Denies: fever Eyes: Denies: eye pain ENT: Denies: ear pain Respiratory: Denies: cough Cardiovascular: Denies: chest pain Endocrine: Denies: fatigue Gastrointestinal: Denies: abdominal pain Genitourinary: Denies: dysuria Musculoskeletal: Denies: back pain Skin: Denies: rash Neurological: Reports: vertigo. Denies: headache, weakness, confusion Past Medical History Past Medical History: No Reported History History of Any Multi-Drug Resistant Organisms: None Reported Past Surgical History: Appendectomy, Hernia Repair Additional Past Surgical History / Comment(s): Dilation and curettage; wisdom teeth, lasik Past Anesthesia/Blood Transfusion Reactions: No Reported Reaction Past Psychological History: No Psychological Hx Reported Smoking Status: Never smoker Past Alcohol Use History: None Reported Past Drug Use History: None Reported - Past Family History Father Family Medical History: No Reported History Mother Additional Family Medical History / Comment(s): OSTEOPOROSIS General Exam Limitations: no limitations General appearance: alert, in no apparent distress Head exam: Present: normocephalic Eye exam: Present: normal appearance, PERRL, EOMI Neck exam: Present: normal inspection Respiratory exam: Present: normal lung sounds bilaterally Cardiovascular Exam: Present: regular rate, normal rhythm GI/Abdominal exam: Present: soft. Absent: tenderness Extremities exam: Present: normal inspection Neurological exam: Present: alert, oriented X3, CN II-XII intact. Absent: motor sensory deficit Expanded Neurological exam: Present: protecting the airway Speech: Present: fluid speech Cranial nerves: EOM's Intact: Normal Motor strength exam: RUE: 5, LUE: 5, RLE: 5, LLE: 5 Eye Response: (4) open spontaneously Motor Response: (6) obeys commands Verbal Response: (5) oriented Psychiatric exam: Present: normal affect, normal mood Skin exam: Present: normal color Course Vital Signs 12/09/21 12/09/21 17:07 19:27 Temperature 98 F Pulse Rate 78 76 Respiratory 16 16 Rate Blood Pressure 115/78 132/78 O2 Sat by Pulse 100 98 Oximetry Medical Decision Making - Medical Decision Making Patient requesting discharge home. Patient reevaluated and feeling much better. Patient able to get up and ambulate without difficulty. Patient updated on results and need for follow-up. - Lab Data Result diagrams: 12/09/21 17:55 12/09/21 17:55 Lab Results 12/09/21 12/09/21 Range/Units 17:55 17:55 WBC 10.7 H (3.8-10.6) k/uL RBC 4.52 (3.80-5.40) m/uL Hgb 13.8 (11.4-16.0) gm/dL Hct 41.0 (34.0-46.0) % MCV 90.8 (80.0-100.0) fL MCH 30.6 (25.0-35.0) pg MCHC 33.7 (31.0-37.0) g/dL RDW 12.9 (11.5-15.5) % Plt Count 301 (150-450) k/uL MPV 6.5 Neutrophils % 69 % Lymphocytes % 24 % Monocytes % 4 % Eosinophils % 2 % Basophils % 0 % Neutrophils # 7.4 (1.3-7.7) k/uL Lymphocytes # 2.5 (1.0-4.8) k/uL Monocytes # 0.4 (0-1.0) k/uL Eosinophils # 0.2 (0-0.7) k/uL Basophils # 0.1 (0-0.2) k/uL Sodium 139 (137-145) mmol/L Potassium 3.8 (3.5-5.1) mmol/L Chloride 102 (98-107) mmol/L Carbon Dioxide 21 L (22-30) mmol/L Anion Gap 16 mmol/L BUN 17 (7-17) mg/dL Creatinine 0.70 (0.52-1.04) mg/dL Est GFR (CKD-EPI)AfAm >90 (>60 ml/min/1.73 sqM) Est GFR (CKD-EPI)NonAf >90 (>60 ml/min/1.73 sqM) Glucose 80 (74-99) mg/dL Calcium 9.6 (8.4-10.2) mg/dL Disposition Clinical Impression: Vertigo Disposition: HOME SELF-CARE Condition: Stable Instructions (If sedation given, give patient instructions): Dizziness (ED) Additional Instructions: [id number] Antivert if needed for dizziness. Please do follow-up with your primary care physician in the next day or 2 for recheck. Return for increased dizziness, weakness, confusion, speech problems, visual changes, worsening symptoms or other concerns. Is patient prescribed a controlled substance at d/c from ED?: No Referrals: Zoran Nails MD [Primary Care Provider] - 1-2 days Time of Disposition: 19:48
[2021-12-09 18:02] LABS: Basophils # (A) 0.1 k/uL (0-0.2); Basophils % (A) 0 %; Eosinophils # (A) 0.2 k/uL (0-0.7); Eosinophils % (A) 2 %; HGB 13.8 gm/dL (11.4-16.0); Lymphocytes # (A) 2.5 k/uL (1.0-4.8); Lymphocytes % (A) 24 %; MCH 30.6 pg (25.0-35.0); MCHC 33.7 g/dL (31.0-37.0); MCV 90.8 fL (80.0-100.0); Mean Platelet Volume 6.5; Monocytes # (A) 0.4 k/uL (0-1.0); Monocytes % (A) 4 %; Neutrophils # (A) 7.4 k/uL (1.3-7.7); Neutrophils % (A) 69 %; Platelet Count 301 k/uL (150-450); RBC 4.52 m/uL (3.80-5.40); RDW 12.9 % (11.5-15.5); WBC 10.7 k/uL (3.8-10.6)
[2021-12-09 18:11] LABS: African American GFR (CKD) >90 (>60 ml/min/1.73 sqM); Anion Gap 16 mmol/L; Blood Urea Nitrogen 17 mg/dL (7-17); Calcium 9.6 mg/dL (8.4-10.2); Carbon Dioxide 21 mmol/L (22-30); Chloride 102 mmol/L (98-107); Glucose 80 mg/dL (74-99); Non-African American GFR(CKD) >90 (>60 ml/min/1.73 sqM); Potassium 3.8 mmol/L (3.5-5.1); Sodium 139 mmol/L (137-145)
[2021-12-09 19:27] VITALS: BP 132/78; PULSE 76
== END 2021-12-09 19:55 | disposition home or self-care (01) ==
LOC: EC 17:05
DX: R42 Dizziness and giddiness (principal)
CPT/HCPCS: 36415; 80048; 85025; 99284; J2765; 96374

== ENCOUNTER → 2023-05-26 | Outpatient (CLI) | payer OTHER ==
--- NOTE | 2023-05-26 18:49 | US ---
EXAMINATION TYPE: US transvaginal DATE OF EXAM: 05/26/2023 COMPARISON: NONE CLINICAL INDICATION: Female, 32 years old with history of N96 RECURRENT LOSS; Irregular men ses TECHNIQUE: Transvaginal (TV). Date of LMP: unknown EXAM MEASUREMENTS: Uterus: 7.6 x 2.9 x 4.1 cm Endometrial Stripe: 0.5 cm Right Ovary: 3.1 x 2.2 x 1.6 cm Left Ovary: 2.9 x 1.6 x 1.7 cm 1. Uterus: Anteverted Nabothian cysts 2. Endometrium: wnl 3. Right Ovary: follicles noted 4. Left Ovary: follicles noted 5. Bilateral Adnexa: appears wnl 6. Posterior cul-de-sac: wnl IMPRESSION: Ovarian follicular cysts noted.
== END | disposition home or self-care (01) ==
LOC: RADUSWWP 17:02
PROVIDERS: ATTEND Obstetrics & Gynecology
DX: N96 Recurrent pregnancy loss (principal); N92.6 Irregular menstruation, unspecified
CPT/HCPCS: 76830